=== PATIENT | male | born 1985 | race Caucasian/White ===

== ENCOUNTER 2018-07-08 12:16 | Emergency (ER) | payer OTHER ==
[~2018-07-08] VITALS: Ht 172.7 cm; Wt 100.0 kg
--- NOTE | 2018-07-08 12:54 | NUR ---
left leg weaker than right: quad strength does not fully extend left leg while sitting
[2018-07-08] MEDS ORDERED: HYDROcodone/acetaminophen 10/325mg tab PO ONE (13:40)
[2018-07-08] MEDS ORDERED: HYDR-4383 PO (16:53)
[2018-07-08] MEDS ORDERED: DICL50TA8 PO (16:53)
[2018-07-08 17:05] VITALS: BP 132/78
== END 2018-07-08 17:10 | disposition home or self-care (01) ==
LOC: ER 12:17
DX: M51.26 Other intervertebral disc displacement, lumbar region (principal); Z79.899 Other long term (current) drug therapy
CPT/HCPCS: 72148; 99284

== ENCOUNTER 2023-09-21 04:07 | Emergency (ER) | payer MEDICAID ==
[~2023-09-21] VITALS: Ht 172.7 cm; Wt 80.0 kg
[~2023-09-21 04:07] MED LIST: DICL50TA8 PO; HYDR-4383 PO
[2023-09-21] MEDS: proparacaine 0.5% ophthalmic drops 15ml EACHEYE ONE (05:37)
[2023-09-21] MEDS ORDERED: erythromycin ophthalmic ointment 1gm tube LEFTEYE ONE (05:40)
[2023-09-21] MEDS ORDERED: ERYT1OIN6 LEFTEYE (05:41)
[2023-09-21 05:57] VITALS: BP 154/99; PULSE 68; RESP 14; TEMP 97.8; O2SAT 98
== END 2023-09-21 05:59 | disposition home or self-care (01) ==
LOC: ER 04:07
DX: T15.82XA Foreign body in other and multiple parts of external eye, left eye, initial encounter (principal)
CPT/HCPCS: 65205; 99284